=== PATIENT | female | born 1980 | race Caucasian/White ===

== ENCOUNTER 2016-08-01 12:32 | Outpatient (CLI) | payer OTHER | END 2016-08-01 14:00 | disposition home or self-care (01) | LOC: FBCOUT 12:32 → FBC 12:32 → FBCOUT 14:00 | PROVIDERS: ATTEND Advanced Practice Midwife | DX: O26.899 Other specified pregnancy related conditions, unspecified trimester (principal); Z3A.00 Weeks of gestation of pregnancy not specified ==

== ENCOUNTER 2016-08-01 20:31 | Inpatient (IN) | payer OTHER ==
[2016-08-01 22:13] VITALS: BMI 31.3
[2016-08-01] MEDS ORDERED: LACTATED RINGERS 1,000 ML IV PRN (22:29)
[2016-08-01] MEDS ORDERED: OXYTOCIN IN LR 500 ML IV ONE (22:29)
[2016-08-01] MEDS ORDERED: IV START KIT ONE (22:30)
[2016-08-01] MEDS ORDERED: OXYTOCIN 10 UNITS/ML VIAL ONE (22:30)
[2016-08-01] MEDS ORDERED: MINERAL OIL 25 ML BOT ONE (22:30)
[2016-08-01] MEDS ORDERED: PUMP TUBING ONE (22:31)
[2016-08-01] MEDS ORDERED: LIDOCAINE Viscous 2% 15 ML UDCUP ONE (22:31)
[2016-08-01] MEDS ORDERED: LIDOCAINE 1% (PRES FREE) 30 ML VIAL ONE (22:31)
[2016-08-01 23:07] LABS: HEMATOCRIT 32.5 % (37.0-47.0); HEMOGLOBIN 10.9 gm/l (12.0-16.0); MEAN CORPUSCULAR HEMOGLOBIN 28.8 pg (27.0-31.0); MEAN CORPUSCULAR HGB CONC 33.5 g/dl (33.0-37.0); RED CELL DISTRIBUTION WIDTH 13.8 % (11.5-14.5)
[2016-08-01] MEDS ORDERED: EPIDURAL PUMP SET ONE (23:15)
[2016-08-01] MEDS ORDERED: FENTANYL/ROPIVACAINE EPIDURAL 250 ML EP ONE (23:16)
--- NOTE | 2016-08-01 23:20 | PCMAN ---
OB Admission Note - History : 5 Term: 4 : 0 Abortions (S&E): 0 Livin EDC:: 07/27/16 (by Sure LMP) Gestational Age (weeks): 40 Days (#/7): 6 Admit Cervical Dilation:: 4.5 Admit Cervical Effacement (%):: 90 Admit Station:: 0 Admit Presentaton:: cephalic Membrane Status: Intact Labor Onset (Date): 08/01/16 Labor Onset (Time): 22:30 Contractions: Yes Contraction Frequency:: q 2-3min, lasting 60 sec Heart Rate:: 115 (moderate variability, accelerations, early decelerations ) Status:: Cat. I EFW:: 7lbs Summary of Course:: Onset to course at 14wks x 10 visits. with uncomplicated OB hx. Uncomplicated . BPD <5% resolved in follow up ultrasounds with normal growth. Attended labor class. Triage visits x 2. baseline wt 132lbs, BMI 25.3, TWG 50lbs. Reactive NST today at [facility] and [facility] on 07/27 was 9.0cm. Supported by Ernesto, who desires to help catch baby as he has helped catch others. Desires an epidural for coping and a visit from hospital heavy equipment mechanic and communion .. - Labs Blood Type: A (+) positive Hct/Hgb:: 10.6 Rubella Status: Immune GBS Status: Negative Abnormal Labs: None Other Labs:: 1hr GTT 122 - Review of Systems ROS neg - Physical Exam General: Afebrile Psych/Mental Status: Mood/Affect Appropriate, Judgment/Insight Intact, Bonding Well Neurological: Grossly Intact, Alert, Oriented x 4, Normal Gait, Normal Speech Lungs: Clear to Auscultation Bilaterally Cardiovascular: Regular Rate and Rhythm Genitourinary: Normal Female Genitalia Extremities: Full ROM Skin: Normal Color, Warm, Dry, Intact - Problems (1) Elderly multigravida in third trimester Status: Acute Code: O09.523Assessment/Plan: A: with IUP at 40w5d Latent to Active labor Membranes intact, GBS neg FHT cat. I P: Admit to [facility]BC Desires epidural, ordered. Reviewed potential need for augmentation. AROM and pitocin reviewed. Continuous monitoring. Anticipate .
[2016-08-01] MEDS: FENTANYL/ROPIVACAINE EPIDURAL 250 ML EP SCH (23:50)
[2016-08-01] MEDS ORDERED: ROPIVACAINE 0.5% 30 ML VIAL ONE (23:58)
[2016-08-01] MEDS ORDERED: EPIDURAL PROCEDURE TRAY ONE (23:58)
--- NOTE | 2016-08-02 00:46 | PDOC36 ---
Provider Note Subject: labor progress note Note: S: resting in bed, comfortable with epidural, requesting epidural if possible O: VE: 5/90/0. JEROME CTX: q 3-4min, lasting 60-90sec, moderate FHT: 115/moderate/accels present/decels absent A:A: with IUP at 40w5d Latent to Active labor AROM for clear fluid, GBS neg FHT cat. I P: AROM for clear fluid. Encourage rest, passive movement Anticipate
[2016-08-02] MEDS ORDERED: CALCIUM CARBONATE 500 MG TAB.CHEW PO ONE (02:40)
[2016-08-02] MEDS ORDERED: CALCIUM CARBONATE 500 MG TAB.CHEW ONE (02:50)
[2016-08-02] MEDS ORDERED: SODIUM CHLORIDE 0.9% 500 ML IV PRN (03:31)
[2016-08-02] MEDS ORDERED: ONDANSETRON 4 MG/2ML 2 ML VIAL IV PRN (03:31)
[2016-08-02] MEDS ORDERED: LACTATED RINGERS 1,000 ML IV SCH (03:31)
[2016-08-02] MEDS ORDERED: METOCLOPRAMIDE HCL 5 MG/ML 2ML VIAL IV PRN (03:31)
[2016-08-02] MEDS ORDERED: LACTATED RINGERS 500 ML IV PRN (03:31)
[2016-08-02] MEDS ORDERED: DIPHENHYDRAMINE HCL 50 MG/1 ML VIAL IV PRN (03:31)
[2016-08-02] MEDS ORDERED: NALBUPHINE HCL 20 MG/ML AMP IV PRN (03:31)
[2016-08-02] MEDS ORDERED: NALOXONE HCL 0.4 MG/ML VIAL IV PRN (03:31)
[2016-08-02] MEDS ORDERED: EPHEDRINE SULFATE 50 MG/ML 1ML VIAL IV PRN (03:31)
[2016-08-02] MEDS ORDERED: MAGNESIUM HYDROXIDE 30 ML UDCUP PO PRN (03:48)
[2016-08-02] MEDS ORDERED: ACETAMINOPHEN 325 MG TABLET PO PRN (03:48)
[2016-08-02] MEDS ORDERED: LACTATED RINGERS 1,000 ML IV PRN (03:48)
[2016-08-02] MEDS ORDERED: BENZOCAINE/MENTHOL 60 APPLIC/BOT TP PRN (03:48)
[2016-08-02] MEDS ORDERED: CALCIUM CARBONATE 500 MG TAB.CHEW PO PRN (03:48)
[2016-08-02] MEDS ORDERED: LANOLIN 50 APPLIC/7G TUBE TP PRN (03:48)
[2016-08-02] MEDS: IBUPROFEN 800 MG TABLET PO SCH ×4 (04:28→22:55)
--- NOTE | 2016-08-02 04:35 | PCMDEL ---
Delivery Note - Labor 1st stage (hr/min):: 12h35m 2nd stage (hr/min):: 1h31m 3rd stage (hr/min):: 0h11m Total (hr/min):: 14h17m Pushed (hr/min):: 1h0m - Delivery Delivery (Date): 08/02/16 Delivery (Time): 03:06 Gender: Male Length: 1 ft 9.5 in Presentation: Cephalic Position: OA Umbilical Cord: 3 Vessel Delayed Cord Clamping:: > 3 min 1 Minute Total: 9 5 Minute Total: 9 Placenta:: spontaneous, intact, ferdinand, 3vc EBL:: 300ml Perineum:: Intact Suture:: none Anesthesia/Meds:: epidural Length ROM:: 2h50m Comments:: Following AROM for clear fluid, Radha made quick progress to complete dilation. FHT Cat. I and II for baseline in 115's with early decels to 90's with good return to baseline and moderate variability. Radha then had strong urge to pushed and pushed effectively over 1.5hrs with intermittent laboring down to achieve of vigorous male infant, Apgars 9/9, over intact perineum. Infant placed immediately on abdomen for drying and bonding. FOB Ernesto assisted with delivery of the , with easy delivery of shoulders. OA to JEROME. Cord clamped after cessation of pulsations, cut by FOB Ernesto. AMTSL with IV pitocin was initiated. Spontaneous delivery of intact placenta, ferdinand, 3 vessel cord. Fundus firm midline at U. Hemostasis achieved at QBL 300ml. Mom and baby stable , baby to breast in first 30min.
[2016-08-02] MEDS: FENTANYL/ROPIVACAINE EPIDURAL 250 ML EP SCH (07:06)
[2016-08-02] MEDS: HYDROCODONE/ACETAMINOPHEN 5/325MG TABLET PO PRN ×3 (09:43→20:13)
[2016-08-02] MEDS: DOCUSATE SODIUM 100 MG CAPSULE PO PRN (11:46)
[2016-08-03] MEDS: HYDROCODONE/ACETAMINOPHEN 5/325MG TABLET PO PRN ×4 (01:40→22:44)
[2016-08-03] MEDS: IBUPROFEN 800 MG TABLET PO SCH ×3 (05:00→17:53)
[2016-08-03 06:23] LABS: HEMATOCRIT 31.4 % (37.0-47.0); HEMOGLOBIN 9.9 gm/l (12.0-16.0)
[2016-08-03] MEDS: DOCUSATE SODIUM 100 MG CAPSULE PO PRN (09:36)
--- NOTE | 2016-08-03 09:55 | PDOC44 ---
- Subjective Day: 1 Happy with experience. Ambulating and voiding without difficulty. Pain well managed with Ibuprofen. Bleeding getting labor contractor. exclusively without difficulty. drowsy and not feeding very often but patient trying to bring to breast q 3-4 hours. Planning discharge tomorrow. Good support from family and . Reports Pain Tolerable, Reports Lochia Light, Reports Tolerating Clear Liquids, Reports Tolerating Regular Diet, Denies Nausea, Denies Fever - Objective Temp Pulse Resp BP Pulse Ox 98.1 F 70 16 109/63 08/03/16 07:45 08/03/16 07:45 08/03/16 07:45 08/03/16 07:45 Lab Results 08/03/16 05:30 Hgb 9.9 L Hct 31.4 L Current Medications Generic Name Dose Route Start Last Admin Trade Name Freq PRN Reason Stop Dose Admin Acetaminophen 325 - 650 mg 08/02/16 03:48 Tylenol PO Q4H PRN Pain (Mild) Acetaminophen/Hydrocodone Bitart 1 - 2 tab 08/02/16 03:48 08/03/16 01:40 Eugene 5/325 PO 1 tab Q4H PRN Administration Pain (Moderate) Benzocaine/Menthol 1 applic 08/02/16 03:48 Dermoplast TP PRN PRN Patient Comfort Calcium Carbonate/Glycine 500 - 1,000 mg 08/02/16 03:48 08/02/16 04:28 Tums PO 1,000 mg BID PRN Administration Indigestion Docusate Sodium 100 mg 08/02/16 03:48 08/03/16 09:36 Colace PO 100 mg DAILY PRN Administration Comfort Emollient Ointment 1 applic 08/02/16 03:48 [id number] TP PRN PRN sore nipples Lactated Ringer's 1,000 mls @ 100 mls/hr 08/02/16 03:48 Lactated Ringers IV .Q10H PRN Titrate per clinical situation Ibuprofen 800 mg 08/02/16 04:00 08/03/16 05:00 Motrin PO 800 mg Q6H ARNEL Administration Magnesium Hydroxide 30 ml 08/02/16 03:48 Milk Of Magnesia PO BEDTIME PRN Constipation Sodium Chloride 10 ml 08/02/16 03:48 08/02/16 11:45 Normal Saline 10ml Flush IV 10 ml PRN PRN Administration IV Flush Sodium Chloride 10 ml 08/02/16 17:00 Normal Saline 10ml Flush IV Q8HR ARNEL - Physical Exam General: Afebrile, No Acute Distress Psych/Mental Status: Mood/Affect Appropriate, Judgment/Insight Intact, Bonding Well Neurological: Grossly Intact, Alert, Oriented x 4 HEENT: Atraumatic, PERRLA Breast: Soft, Skin intact, Nipples Intact, No Tenderness, No Erythema Fundus: Firm, Midline, Below Umbilicus Genitourinary: Normal Female Genitalia Lochia: Light Extremities: Full ROM, No Edema Skin: Normal Color, Warm, Dry - Problems:Assessment/Plan (1) (normal spontaneous vaginal delivery) Status: Acute Disposition: Anticipate DC Home Tomorrow
[2016-08-04] MEDS: IBUPROFEN 800 MG TABLET PO SCH ×2 (00:49→07:12)
[2016-08-04] MEDS: HYDROCODONE/ACETAMINOPHEN 5/325MG TABLET PO PRN (02:54)
[2016-08-04 07:29] VITALS: BP 103/65
[2016-08-04] MEDS: DOCUSATE SODIUM 100 MG CAPSULE PO PRN (09:49)
--- NOTE | 2016-08-04 10:48 | PDOC39B ---
Hospital Course: ADMIT DATE: 08/01/16 DISCHARGE DATE: 08/04/16 ADMISSION DIAGNOSES: Active Labor PROCEDURES: HISTORY OF PRESENT ILLNESS: 36 year old G5 T4 L4 at 40 weeks 6 days presenting with latent to active labor. HOSPITAL COURSE: The patient progressed to complete and had a spontaneous vaginal of a viable male , apgars 9 and 9, with an intact perineum. By day of discharge the patient is stable, well and ready to go home. - Physical Exam Vital Signs: Temp Pulse Resp BP Pulse Ox 98.2 F 55 16 103/65 08/04/16 07:15 08/04/16 07:15 08/04/16 07:15 08/04/16 07:15 General: Afebrile Psych/Mental Status: Mood/Affect Appropriate, Bonding Well Neurological: Grossly Intact Breast: Soft, Nipples Intact Fundus: Firm, Midline, Below Umbilicus Genitourinary: Normal Female Genitalia Lochia: Light Rectal Exam: Deferred Extremities: Full ROM Skin: Normal Color, Warm, Dry - Discharge Diagnosis (1) care and examination of lactating mother Status: AcuteAssessment/Plan: A: PP day 2, Normal course P: Discharge home today with follow-up in 2 and 6 weeks with CNM - Discharge Plan Condition: Stable Disposition: Home Additional Instructions: Midwifery 'After the ' handout given to patient. Follow-Up: Kari Raya CNM [Certified Nurse [employer]] - In 2 weeks
== END 2016-08-04 12:49 | disposition home or self-care (01) | DRG 775 ==
LOC: FBC 20:31 → FBCOUT 20:31 → FBC 22:30 → FBCOUT 22:30
PROVIDERS: ADMIT Advanced Practice Midwife; ATTEND Licensed Practical Nurse
PROC: 00HU33Z Insertion of Infusion Device into Spinal Canal, Percutaneous Approach (ICD-10-PCS; 2016-08-01)
PROC: 10E0XZZ Delivery of Products of Conception, External Approach (ICD-10-PCS; principal; 2016-08-02)
PROC: 10907ZC Drainage of Amniotic Fluid, Therapeutic from Products of Conception, Via Natural or Artificial Opening (ICD-10-PCS; 2016-08-02)
DX: O63.0 Prolonged first stage (of labor) (principal); Z3A.40 40 weeks gestation of pregnancy; Z37.0 Single live birth